=== PATIENT | male | born 1970 | race Asian ===

== ENCOUNTER 2020-07-26 09:36 | Day surgery (SDC) | payer OTHER ==
[2020-07-23 15:12] VITALS: BMI 27.0
[2020-07-26] MEDS ORDERED: LIDOCAINE 1%/EPI 1:100000 (20 ML MULTI DOSE VIAL) ONE (10:10)
[2020-07-26] MEDS ORDERED: LIDOCAINE HCL 1%, 10 MG/ML (20ML VIAL) ONE (10:10)
[2020-07-26] MEDS ORDERED: ceFAZolin SODIUM 1 GM VIAL ONE (10:19)
[2020-07-26] MEDS ORDERED: ONDANSETRON 4 MG/2 ML VIAL ONE (10:19)
[2020-07-26] MEDS ORDERED: MIDAZOLAM HCL 2 MG/2 ML SINGLE DOSE VIAL ONE (10:19)
[2020-07-26] MEDS ORDERED: PROPOFOL 20 ML ONE ×2 (10:19→10:37)
[2020-07-26] MEDS ORDERED: DEXAMETHASONE SOD PHOSPHATE 4 MG/1 ML VIAL ONE (10:19)
[2020-07-26] MEDS ORDERED: BSS (NA/CA/MG/K) BALANCED SALT SOLUTION OPHTH SOLN 15 ML BOTTLE ONE (10:52)
[2020-07-26] MEDS ORDERED: LIDOCAINE 1%/EPI 1:100000 (50 ML MULTI DOSE VIAL) INF ONE (11:01)
[2020-07-26] MEDS ORDERED: ONDANSETRON 4 MG/2 ML VIAL IVPUSH PRN (11:05)
[2020-07-26] MEDS ORDERED: oxyCODONE HCL 5 MG TABLET PO PRN (11:05)
[2020-07-26] MEDS ORDERED: LACTATED RINGERS SOLUTION 1,000 ML IV SCH (11:15)
[2020-07-26] MEDS ORDERED: ePHEDrine SULFATE 50 MG/1 ML AMPULE ONE (11:17)
[2020-07-26] MEDS ORDERED: PHENYLEPHRINE HCL 10 MG/1 ML SINGLE DOSE VIAL ONE (11:17)
[2020-07-26] MEDS ORDERED: BACITRACIN 15 GM TUBE TOPICAL OINTMENT ONE (11:42)
[2020-07-26] MEDS ORDERED: DESFLURANE GAS 240 ML BOTTLE IH ONE (11:44)
[2020-07-26 13:04] VITALS: TEMP 98.2
[2020-07-26 13:28] VITALS: BP 122/84; PULSE 78
== END 2020-07-26 13:30 | disposition home or self-care (01) ==
LOC: FASU 09:36
PROVIDERS: ATTEND Surgery Plastic and Reconstructive Surgery
PROC: 0HQ1XZZ Repair Face Skin, External Approach (ICD-10-PCS; 2020-07-26)
PROC: 0HB1XZX Excision of Face Skin, External Approach, Diagnostic (ICD-10-PCS; 2020-07-26)
PROC: 0HB0XZZ Excision of Scalp Skin, External Approach (ICD-10-PCS; principal; 2020-07-26 11:01)
DX: L91.0 Hypertrophic scar (principal); L90.5 Scar conditions and fibrosis of skin; D21.0 Benign neoplasm of connective and other soft tissue of head, face and neck
CPT/HCPCS: 88304-TC; 88305-TC; 94760